=== PATIENT | female | born 1970 | race American Indian/Alaskan Native ===

== ENCOUNTER 2018-01-04 17:29 | Emergency (ER) | payer OTHER ==
[2018-01-04] MEDS ORDERED: XANAX PO ONE (22:50)
[2018-01-04] MEDS ORDERED: NORCO 5/325 PO ONE (22:50)
--- NOTE | 2018-01-04 22:50 | Emergency Department Report ---
ED Recheck HPI - General Chief Complaint: Medical Clearance Stated Complaint: RIGHT FLANK PAIN Time Seen by Provider: 01/04/18 22:04 Source: patient, family Mode of arrival: Ambulatory Limitations: No Limitations - History of Present Illness Initial Comments: This is a 47-year-old female here so that she just moved from [place] and stated that she has a history of chronic pain from kidney stents . She says she is due to have the procedure again in 12 weeks and she is on amlodipine, oxycodone and Klonopin and she would like a refill for months of each until she is able to find a primary care physician. She says she went to primary care clinic today and they told her to come to the emergency room. Denies any nausea or vomiting at present. She said her pain is 6 out of 10 at present which is chronic. She says she has a history of anxiety. Denies any fever or chills. Denies any urinary burning frequency or urgency. Patient does have access to primary care but she says she couldn't get an appointment. Pain is achy and it comes and goes. Better with pain medication worse with movement. Complaint: medication refill request Initial Visit For: other (patient is here for medication refill) Returns Today for: request for prescription Symptoms Since Prior Visit: no new symptoms Context: ran out of medication Associated Symptoms: none Treatments Prior to Arrival: other medications ([id number] pain medication ) - Related Data Home Medications Medication Instructions Recorded Confirmed Last Taken Oxycodone HCl/Acetaminophen 10 - 325 tab PO Q4-6H 01/04/18 01/04/18 1 Day Ago [Percocet 10/325 mg] ~01/03/18 Zolpidem [Ambien] 10 mg PO QHS 01/04/18 01/04/18 Unknown Previous Rx's Medication Instructions Recorded Last Taken Type Acetaminophen/Codeine [Tylenol 1 tab PO Q8H PRN #12 tab 01/04/18 Unknown Rx /Codeine # 3 tab] Amlodipine Besylate [Norvasc] 10 mg PO DAILY 30 Days #30 tablet 01/04/18 Unknown Rx clonazePAM [KlonoPIN] 0.5 mg PO Q12H PRN 4 Days #8 tablet 01/04/18 Unknown Rx Allergies Allergy/AdvReac Type Severity Reaction Status Date / Time iodine Allergy Hives Verified 01/04/18 17:43 ED Review of Systems ROS: Stated complaint: RIGHT FLANK PAIN Other details as noted in HPI Constitutional: other (requested a refill on her pain medication and blood pressure medication, anxiety medication). denies: chills, fever Eyes: denies: eye pain, vision change ENT: denies: ear pain, throat pain, congestion Respiratory: denies: cough, orthopnea, shortness of breath, SOB with exertion, SOB at rest, stridor, wheezing Cardiovascular: denies: chest pain, palpitations, dyspnea on exertion, edema, syncope, paroxysmal nocturnal dyspnea Gastrointestinal: denies: abdominal pain, nausea, vomiting, diarrhea Genitourinary: denies: urgency, dysuria, hematuria, discharge Musculoskeletal: back pain, other (chronic pain). denies: joint swelling, arthralgia Skin: denies: rash, lesions Neurological: denies: headache, weakness, paresthesias Psychiatric: anxiety. denies: depression, auditory hallucinations, visual hallucinations, homicidal thoughts, suicidal thoughts ED Past Medical Hx - Past Medical History Previous Medical History?: Yes Additional medical history: back fracture, UPJ obstruction - Surgical History Past Surgical History?: Yes Additional Surgical History: Renal stents - Family History Family history: hypertension - Social History Smoking Status: Current Every Day Smoker Substance Use Type: None - Medications Home Medications: Home Medications Medication Instructions Recorded Confirmed Last Taken Type Acetaminophen/Codeine [Tylenol 1 tab PO Q8H PRN #12 tab 01/04/18 Unknown Rx /Codeine # 3 tab] Amlodipine Besylate [Norvasc] 10 mg PO DAILY 30 Days #30 tablet 01/04/18 Unknown Rx Oxycodone HCl/Acetaminophen 10 - 325 tab PO Q4-6H 01/04/18 01/04/18 1 Day Ago History [Percocet 10/325 mg] ~01/03/18 Zolpidem [Ambien] 10 mg PO QHS 01/04/18 01/04/18 Unknown History clonazePAM [KlonoPIN] 0.5 mg PO Q12H PRN 4 Days #8 tablet 01/04/18 Unknown Rx ED Physical Exam - General Limitations: No Limitations General appearance: alert, in no apparent distress - Head Head exam: Present: atraumatic, normocephalic, normal inspection - Eye Eye exam: Present: normal appearance, PERRL, EOMI Pupils: Present: normal accommodation - ENT ENT exam: Present: normal exam, normal orophraynx, mucous membranes moist - Neck Neck exam: Present: normal inspection, full ROM. Absent: tenderness, lymphadenopathy - Respiratory Respiratory exam: Present: normal lung sounds bilaterally. Absent: respiratory distress, chest wall tenderness - Cardiovascular Cardiovascular Exam: Present: normal rhythm, tachycardia, normal heart sounds. Absent: systolic murmur, diastolic murmur - GI/Abdominal GI/Abdominal exam: Present: soft, normal bowel sounds. Absent: distended, tenderness, guarding, rebound, rigid, organomegaly, mass, bruit, pulsatile mass - Extremities Exam Extremities exam: Present: normal inspection, full ROM, normal capillary refill , other (no clubbing, cyanosis or edema. +2 pulses to all extremities and no neurovascular compromise). Absent: tenderness, pedal edema, joint swelling, calf tenderness - Back Exam Back exam: Present: normal inspection, full ROM, other (endplates without any difficulties). Absent: tenderness, CVA tenderness (R), CVA tenderness (L), muscle spasm, paraspinal tenderness, vertebral tenderness, rash noted - Neurological Exam Neurological exam: Present: alert, oriented X3, normal gait - Psychiatric Psychiatric exam: Present: normal affect, normal mood - Skin Skin exam: Present: warm, dry, intact, normal color. Absent: rash ED Course Vital Signs 01/04/18 01/04/18 17:35 22:51 Temperature 98.6 F Pulse Rate 133 H 100 H Respiratory 16 Rate Blood Pressure 133/98 O2 Sat by Pulse 98 Oximetry - Reevaluation(s) Reevaluation #1: 01/04/18 22:59 Patient given Percocet 11/15/2410/08/1999 emergency room and Xanax 1 mg by mouth for pain and anxiety. ED Recheck MDM - Medical Decision Making ED course: This is a 47-year-old female here requesting medication refill on her blood pressure medication which is amlodipine, anxiety medication which is Klonopin and pain medication which is oxycodone. She says she just moved from [place] and she has chronic pain with anxiety and high blood pressure and she is unable to get in with a primary care physician. She says she went to clinic today and they sent her to the emergency room because they were not able to see her. Patient says she has to get established with a pain management doctor and also primary care doctor. She is here for refill. I saw and examined patient and she is stable at present with back pain and they gave her Percocet 5/325 2 tablets by mouth and Xanax 1 mg by mouth for anxiety. Her heart rate was 133 triage but now it sat 100. Patient does have access to primary care and refer her to a primary care doctor I also gave her flier for [facility] before she can walk in tomorrow to see primary care. I told her that they can refer her to a pain clinic to manage her chronic pain. I also discussed with her that I will refer her to a iron caster to manage her kidney problems. Patient is stable and felt better after pain and medication and anxiety medication. She voiced understanding the discharge instructions. A/P 1: Chronic back pain with acute exacerbation-patient given Percocet 5/325 2 tablets by mouth and felt better and I will discharge her home on Tylenol No. . I'll refer her to primary care physician who can refer her to pain specialist. 2: Hypertension stable-well refill her amlodipine Anxiety: She was given Xanax 1 mg when necessary emergency room and we will refill her Klonopin for a couple days. Education given medication, diagnosis , need to follow up with iron caster and primary care doctor and also referral to pain specialist. She voiced understanding. Patient discharged home with family in stable condition with prescription Tylenol 3, amlodipine and Klonopin. Her vital signs are stable she is afebrile and she is nontoxic. She is to follow-up with primary care physician in 3 days , follow up with nephrology in 3-5 days and have primary care physician refer her to pain specialist and she voiced understanding. I discussed with her if her condition worsens she can return to the emergency room. Critical care attestation.: If time is entered above; I have spent that time in minutes in the direct care of this critically ill patient, excluding procedure time. ED Disposition Clinical Impression: Encounter for medication refill, Acute exacerbation of chronic low back pain, Anxiety Disposition: - TO HOME OR SELFCARE Is pt being admited?: No Does the pt Need Aspirin: No Condition: Stable Instructions: Anxiety (ED), Chronic Back Pain (ED), Hypertension (ED), DASH Eating Plan (ED) Additional Instructions: Please follow up with primary care physician that you were referred to for management of chronic medical problems. Referral to a iron caster. Please not to have or operate heavy machinery while taking Klonopin and/or Tylenol No. 3 of these medication causes drowsiness increase fluid intake We are only able to her fill your pain medication and anxiety medication once in emergency room You will have to follow-up with specialist for management of chronic problems. Prescriptions: Acetaminophen/Codeine [Tylenol /Codeine # 3 tab] 1 tab PO Q8H PRN #12 tab PRN Reason: Pain , Severe (7-10) Amlodipine Besylate [Norvasc] 10 mg PO DAILY 30 Days #30 tablet clonazePAM [KlonoPIN] 0.5 mg PO Q12H PRN 4 Days #8 tablet PRN Reason: Anxiety Referrals: [facility] [Outside] - 3-5 Days ROSANA JENNINGS MD [Staff Physician] - 3-5 Days LYDIA MICHELLE MD [Staff Physician] - 01/07/18 Forms: Work/School Release Form(ED)
[2018-01-04 23:19] VITALS: BP 135/91
== END 2018-01-04 23:19 | disposition home or self-care (01) ==
LOC: ED 17:29
DX: M54.5 Low back pain (principal); G89.29 Other chronic pain; F41.9 Anxiety disorder, unspecified; F17.200 Nicotine dependence, unspecified, uncomplicated
CPT/HCPCS: 99282